=== PATIENT | female | born 1950 | race Caucasian/White ===

== ENCOUNTER 2016-09-14 17:20 | Inpatient (IN) | payer MEDICARE, OTHER ==
[~2016-09-14] VITALS: Ht 165.1 cm; Wt 56.7 kg
[2016-09-14 18:34] LABS: BASOPHILS % (AUTO) 0.4 % (0.0-2.0); EOSINOPHILS % (AUTO) 0.3 % (0.0-6.0); HEMATOCRIT 38 % (33-45); HEMOGLOBIN 12.7 g/dL (11.5-14.8); LYMPHOCYTES # (AUTO) 1.2 /CMM (0.8-4.8); MEAN CORPUSCULAR HEMOGLOBIN 27 PG (26.0-33.0); MEAN CORPUSCULAR HGB CONC 34 g/dl (31.0-36.0); MEAN CORPUSCULAR VOLUME 81 fL (82-100); MONOCYTES # (AUTO) 0.6 /CMM (0.1-1.30); NEUTROPHILS # (AUTO) 4.6 /CMM (1.8-8.9); NEUTROPHILS % (AUTO) 72.3 % (43.0-81.0); PLATELET COUNT (AUTO) 214 /CMM (150-450); RDW COEFFICIENT OF VARIATION 17.3 (11.5-15.0); RED BLOOD CELL COUNT(AUTO) 4.64 MIL/uL (4.0-5.2); WHITE BLOOD COUNT (AUTO) 6.4 K/uL (4.3-11.0)
[2016-09-14 18:42] LABS: APPEARANCE,URINE Clear (CLEAR); BILIRUBIN,URINE Negative (NEGATIVE); BLOOD, URINE Trace-intact Ery/uL (NEGATIVE); COLOR,URINE Yellow (YELLOW); KETONES,URINE Negative (NEGATIVE); LEUKOCYTE ESTERASE ,URINE Negative (NEGATIVE); NITRITE, URINE Negative (NEGATIVE); PH,URINE 5.5 (5.0-8.0); PROTEIN,URINE Negative (NEGATIVE); UGLUCOSE Negative (NEGATIVE); UROBILINOGEN,URINE 0.2 EU/dL (0.2)
[2016-09-14 18:43] LABS: CALCIUM, SERUM 9.4 mg/dL (8.5-10.1); CARBON DIOXIDE 28 mmol/L (21-32); CHLORIDE 106 mmol/L (98-107); GLUCOSE 105 mg/dL (74-106); POTASSIUM 3.7 mmol/L (3.5-5.1); SODIUM SERUM 142 mmol/L (136-145); UREA NITROGEN, BLOOD 19 mg/dL (7-18)
[2016-09-14 18:49] LABS: ALANINE AMINOTRANSFERASE 15 U/L (12-78); ALBUMIN 3.9 g/dL (3.4-5.0); ALCOHOL, BLOOD < 3 mg/dL (0-0); ALKALINE PHOSPHATASE 73 U/L (46-116); ASPARTATE AMINOTRANSFERASE 21 U/L (15-37); BILIRUBIN,DIRECT 0.1 mg/dL (0.0-0.2); BILIRUBIN,TOTAL 0.4 mg/dL (0.2-1.0); TOTAL PROTEIN, SERUM 7.1 g/dL (6.4-8.2)
[2016-09-14 18:50] LABS: ACETAMINOPHEN 0 ug/ml (10-30); SALICYLATE 1.8 mg/dL (2.8-20.0)
[2016-09-14 18:57] LABS: BACTERIA,URINE Rare /HPF (None Seen); RBC,URINE 0-2 /HPF (0-2); SQUAMOUS EPITHELIAL CELL,UR Few /HPF (None Seen); WBC,URINE 0-2 /HPF (0-3)
[2016-09-14 21:20] VITALS: BP 132/58
[2016-09-14] MEDS ORDERED: MAG HYDROX/AL HYDROX/SIMETH 30 ML UDC PO PRN (22:00)
[2016-09-14] MEDS ORDERED: MAGNESIUM HYDROXIDE 30 ML UDC PO PRN (22:00)
[2016-09-14] MEDS ORDERED: TEMAZEPAM 7.5 MG CAPSULE ONE (23:37)
[2016-09-14] MEDS: TEMAZEPAM 7.5 MG CAPSULE PO PRN (23:50)
[2016-09-15] MEDS ORDERED: FLUV100T3 PO (06:21)
[2016-09-15] MEDS ORDERED: CLON0.5T4 PO (06:21)
[2016-09-15] MEDS ORDERED: OLAN10TA3 PO (06:23)
[2016-09-15] MEDS ORDERED: DIVA250T PO (06:27)
[2016-09-15 07:28] LABS: CREATININE 0.8 mg/dL (0.6-1.3)
[2016-09-15 08:00] VITALS: BP 111/61
[2016-09-15] MEDS: DIVALPROEX SODIUM 250 MG TABLET.DR PO SCH ×2 (15:29→20:03)
[2016-09-15 16:00] VITALS: BP 109/67
[2016-09-15 20:00] VITALS: BP 114/67
[2016-09-15] MEDS: LORAZEPAM 0.5 MG TABLET PO PRN (20:14)
[2016-09-15] MEDS: FLUVOXAMINE MALEATE 50 MG TABLET PO SCH (21:11)
[2016-09-15] MEDS: OLANZAPINE 5 MG/TAB.RAPDIS PO SCH (21:11)
[2016-09-15] MEDS: TEMAZEPAM 7.5 MG CAPSULE PO PRN (23:40)
[2016-09-16 08:00] VITALS: BP 106/60
[2016-09-16] MEDS: DIVALPROEX SODIUM 250 MG TABLET.DR PO SCH (08:08)
[2016-09-16] MEDS: clonazePAM 0.5 MG TABLET PO PRN ×2 (08:08→22:03)
[2016-09-16] MEDS: OLANZAPINE 5 MG/TAB.RAPDIS PO SCH ×3 (08:08→21:15)
[2016-09-16] MEDS: LORAZEPAM 0.5 MG TABLET PO PRN (15:37)
[2016-09-16 16:35] VITALS: BP 102/57
[2016-09-16 16:41] VITALS: BP 102/57
[2016-09-16 20:00] VITALS: BP 112/74
[2016-09-16] MEDS: DIVALPROEX SODIUM 125 MG TABLET.DR PO SCH (20:00)
[2016-09-16] MEDS: FLUVOXAMINE MALEATE 50 MG TABLET PO SCH (21:15)
[2016-09-16] MEDS: TEMAZEPAM 7.5 MG CAPSULE PO PRN (22:55)
[2016-09-17 08:00] VITALS: BP 102/61
[2016-09-17] MEDS: DIVALPROEX SODIUM 125 MG TABLET.DR PO SCH ×2 (08:26→21:05)
[2016-09-17] MEDS: OLANZAPINE 5 MG/TAB.RAPDIS PO SCH ×3 (08:26→21:05)
[2016-09-17 16:26] VITALS: BP 110/61
[2016-09-17] MEDS: clonazePAM 0.5 MG TABLET PO PRN (17:52)
[2016-09-17 20:00] VITALS: BP 117/70
[2016-09-17] MEDS: FLUVOXAMINE MALEATE 50 MG TABLET PO SCH (21:04)
[2016-09-18] MEDS: OLANZAPINE 5 MG/TAB.RAPDIS PO SCH ×3 (08:37→21:05)
[2016-09-18] MEDS: DIVALPROEX SODIUM 125 MG TABLET.DR PO SCH ×2 (08:37→21:05)
[2016-09-18 09:18] VITALS: BP 103/57
[2016-09-18] MEDS: clonazePAM 0.5 MG TABLET PO PRN (14:53)
[2016-09-18 16:29] VITALS: BP 129/69
[2016-09-18] MEDS: TEMAZEPAM 7.5 MG CAPSULE PO PRN (21:05)
[2016-09-18] MEDS: FLUVOXAMINE MALEATE 50 MG TABLET PO SCH (21:05)
[2016-09-18] MEDS: ACETAMINOPHEN 325 MG TABLET PO PRN (21:35)
[2016-09-19] MEDS: DIVALPROEX SODIUM 125 MG TABLET.DR PO SCH (07:58)
[2016-09-19] MEDS: OLANZAPINE 5 MG/TAB.RAPDIS PO SCH ×2 (07:58→13:06)
[2016-09-19 08:00] VITALS: BP 116/65
[2016-09-19 16:00] VITALS: BP 118/73
[2016-09-19] MEDS: clonazePAM 0.5 MG TABLET PO PRN (16:03)
[2016-09-19 20:26] VITALS: BP 102/68
[2016-09-19] MEDS: FLUVOXAMINE MALEATE 50 MG TABLET PO SCH (21:17)
[2016-09-19] MEDS: DIVALPROEX SODIUM 500 MG TABLET.DR PO SCH (21:17)
[2016-09-19] MEDS ORDERED: OLANZAPINE 5 MG/TAB.RAPDIS PO SCH (22:00)
[2016-09-19] MEDS: TEMAZEPAM 7.5 MG CAPSULE PO PRN (22:46)
[2016-09-20] MEDS: LORAZEPAM 0.5 MG TABLET PO PRN (00:36)
[2016-09-20 08:00] VITALS: BP 116/66
[2016-09-20] MEDS: DIVALPROEX SODIUM 500 MG TABLET.DR PO SCH ×2 (08:36→21:15)
[2016-09-20] MEDS: OLANZAPINE 5 MG/TAB.RAPDIS PO SCH ×3 (08:36→21:15)
[2016-09-20 16:00] VITALS: BP 115/70
[2016-09-20 19:52] VITALS: BP 108/60
[2016-09-20] MEDS: GABAPENTIN 100 MG CAPSULE PO SCH (19:55)
[2016-09-20] MEDS: FLUVOXAMINE MALEATE 50 MG TABLET PO SCH (21:15)
[2016-09-20] MEDS: TEMAZEPAM 7.5 MG CAPSULE PO PRN (22:34)
[2016-09-21 07:25] LABS: BASOPHILS % (AUTO) 0.6 % (0.0-2.0); EOSINOPHILS % (AUTO) 0.4 % (0.0-6.0); HEMATOCRIT 40 % (33-45); HEMOGLOBIN 13.4 g/dL (11.5-14.8); LYMPHOCYTES # (AUTO) 1.4 /CMM (0.8-4.8); LYMPHOCYTES % (AUTO) 42.6 % (20.0-44.0); MEAN CORPUSCULAR HEMOGLOBIN 28 PG (26.0-33.0); MEAN CORPUSCULAR HGB CONC 33 g/dl (31.0-36.0); MEAN CORPUSCULAR VOLUME 83 fL (82-100); MONOCYTES # (AUTO) 0.4 /CMM (0.1-1.30); MONOCYTES % (AUTO) 11.1 % (2.0-12.0); NEUTROPHILS # (AUTO) 1.5 /CMM (1.8-8.9); NEUTROPHILS % (AUTO) 45.3 % (43.0-81.0); PLATELET COUNT (AUTO) 201 /CMM (150-450); RDW COEFFICIENT OF VARIATION 17.2 (11.5-15.0); RED BLOOD CELL COUNT(AUTO) 4.86 MIL/uL (4.0-5.2); WHITE BLOOD COUNT (AUTO) 3.4 K/uL (4.3-11.0)
[2016-09-21 07:51] LABS: ALBUMIN 3.3 g/dL (3.4-5.0); BILIRUBIN,TOTAL 0.4 mg/dL (0.2-1.0); CALCIUM, SERUM 9.1 mg/dL (8.5-10.1); CREATININE 0.7 mg/dL (0.6-1.3); POTASSIUM 3.9 mmol/L (3.5-5.1); TOTAL PROTEIN, SERUM 6.6 g/dL (6.4-8.2)
[2016-09-21 08:00] VITALS: BP 123/71
[2016-09-21] MEDS: OLANZAPINE 5 MG/TAB.RAPDIS PO SCH ×3 (08:35→21:05)
[2016-09-21] MEDS: GABAPENTIN 100 MG CAPSULE PO SCH ×3 (08:35→17:47)
[2016-09-21] MEDS: DIVALPROEX SODIUM 500 MG TABLET.DR PO SCH ×2 (08:35→21:05)
[2016-09-21 16:00] VITALS: BP 108/60
[2016-09-21 20:00] VITALS: BP 107/69
[2016-09-21] MEDS: TEMAZEPAM 7.5 MG CAPSULE PO PRN (21:05)
[2016-09-21] MEDS: FLUVOXAMINE MALEATE 50 MG TABLET PO SCH (21:05)
[2016-09-21] MEDS: ACETAMINOPHEN 325 MG TABLET PO PRN (22:10)
[2016-09-21] MEDS: LORAZEPAM 0.5 MG TABLET PO PRN (23:40)
[2016-09-22] MEDS: ACETAMINOPHEN 325 MG TABLET PO PRN (04:24)
[2016-09-22] MEDS: DIVALPROEX SODIUM 500 MG TABLET.DR PO SCH (08:00)
[2016-09-22] MEDS: GABAPENTIN 100 MG CAPSULE PO SCH ×2 (08:00→12:16)
[2016-09-22] MEDS: OLANZAPINE 5 MG/TAB.RAPDIS PO SCH ×2 (08:00→12:16)
[2016-09-22 08:41] VITALS: BP 107/65
[2016-09-22] MEDS ORDERED: BENZTROPINE MESYLATE (1 MG) 1 MG TABLET PO SCH (12:30)
== END 2016-09-22 13:40 | disposition home or self-care (01) | DRG 885 ==
LOC: ER 17:22 → GPS 20:59
PROVIDERS: ADMIT Psychiatry & Neurology Psychosomatic Medicine; ATTEND Family Medicine
DX: F31.9 Bipolar disorder, unspecified (principal); R45.851 Suicidal ideations; F42.9 Obsessive-compulsive disorder, unspecified; F41.9 Anxiety disorder, unspecified; Z85.3 Personal history of malignant neoplasm of breast; Z90.11 Acquired absence of right breast and nipple; Z79.899 Other long term (current) drug therapy
CPT/HCPCS: 36415; 80048-TC; 80053-TC; 80061-TC; 80076-TC; 80164-TC; 80305; 81000-TC; 82565-TC; 85025-TC; 87081-TC; A4606; G0480; Z7610